=== PATIENT | female | born 1965 | race Caucasian/White ===

== ENCOUNTER → 2017-02-14 | Outpatient (CLI) | payer OTHER ==
--- NOTE | 2017-02-14 10:16 | DIAGNOSTIC IMAGING REPORT ---
GI SERIES W/AIR ROUTINE CLINICAL HISTORY: HIATAL HERNIA COMPARISON STUDY: None. FLUOROSCOPY TIME: 1.7 minutes. 22 images submitted. FINDINGS: The patient swallowed without difficulty. The esophagus is essentially normal in course, caliber, motility. Shortening of the esophagus is due to the large hiatus hernia. No gastroesophageal reflux. No gastric ulcerations. The duodenal bulb and duodenal C sweep are within normal limits. IMPRESSION: Large hiatus hernia. Electronically signed by: Dl Chisholm M.D. 02/14/2017 10:15 AM Dictated Date/Time: 02/14/2017 10:13 AM
== END | disposition home or self-care (01) ==
LOC: C.RAD 09:24
PROVIDERS: ATTEND Surgery
DX: K44.9 Diaphragmatic hernia without obstruction or gangrene (principal)